=== PATIENT | female | born 1990 | race Caucasian/White ===

== ENCOUNTER 2016-08-06 12:02 | Emergency (ER) | payer MEDICAID ==
[~2016-08-06] VITALS: Ht 170.2 cm; Wt 59.4 kg
[2016-08-06 12:54] LABS: Basophils # (auto) 0 uL; Basophils % (auto) 0.2 % (0.0-2.0); DEFINITIVE VIEW TRANSMISSION; Eosinophils # (auto) 0 uL; Eosinophils % (auto) 0.1 % (0.0-7.0); Hematocrit 35.6 % (36.0-46.0); Hemoglobin 10.9 g/dL (12.2-16.2); Lymphocytes # (auto) 1.1 uL; Lymphocytes % (auto) 11.1 % (10.0-50.0); Mean Corpuscular Hemoglobin 20.1 pg (28.0-32.0); Mean Corpuscular Hgb Conc. 30.5 g/dL (32.0-36.0); Mean Corpuscular Volume 65.9 fL (80.0-100.0); Mean Platelet Volume 8.7 fL (7.4-10.4); Monocytes # (auto) 0.8 uL; Monocytes % (auto) 7.8 % (0.0-12.0); Neutrophils # (auto) 7.8 uL; Neutrophils % (auto) 80.8 % (37.0-80.0); Platelet Count (auto) 381 10^3/uL (140-450); White Blood Cell 9.7 10^3/uL (4.4-10.8)
[2016-08-06 13:00] LABS: Red Cell Distribution Width 20.4 % (11.6-16.0)
[2016-08-06 13:10] LABS: Albumin 4.4 g/dL (3.4-5.0); BUN/Creatinine Ratio 5.6; Bilirubin, Total 0.6 mg/dL (0.2-1.0); Potassium 3.3 mmol/L (3.5-5.1); Total Protein 8.8 g/dL (6.4-8.2)
[2016-08-06 13:53] LABS: Microcytosis Marked
[2016-08-06 13:54] LABS: Anisocytosis Moderate; Burr Cells FEW; Hypochromia Marked; Ovalocytes FEW; Platelet Estimate Adequate
[2016-08-06 13:55] LABS: Giant Platelets Few
[2016-08-06 14:16] LABS: Urine Mucus MODERATE (None Seen)
[2016-08-06 14:21] LABS: Urine Color Red (Yellow)
[2016-08-06 14:24] LABS: Urine Squamous Epithelial Cell None seen /hpf (<5)
[2016-08-06 15:15] VITALS: BP 112/71
[2016-08-06] MEDS ORDERED: POTASSIUM CHL 20 Meq TABLET PO ONE (15:30)
== END 2016-08-06 16:22 | disposition home or self-care (01) ==
LOC: ER 12:05
DX: O34.81 Maternal care for other abnormalities of pelvic organs, first trimester (principal); N83.201 Unspecified ovarian cyst, right side; O99.011 Anemia complicating pregnancy, first trimester; D50.9 Iron deficiency anemia, unspecified; Z3A.01 Less than 8 weeks gestation of pregnancy; E87.6 Hypokalemia
CPT/HCPCS: 36415; 76801; 76817; 80053; 81001; 84702; 85025; 94761